=== PATIENT | female | born 1940 | race Caucasian/White ===

== ENCOUNTER 2024-09-19 10:15 | Emergency (ER) | payer OTHER, SELFPAY ==
[2024-09-19 10:24] VITALS: BP 163/76; PULSE 73; RESP 18; TEMP 36.8; O2SAT 95; BMI 39.2
--- NOTE | 2024-09-19 10:36 | XR_ITS ---
Examination: Knee, left , 3 views Technique: Knee AP, lateral, oblique 3 views Date and time of exam: September 19, 2024 1056 hours INDICATIONS: Left knee pain beginning 2 days ago. FINDINGS: Moderate to advanced tricompartment osteoarthritis, most severe medial joint space Small knee effusion No fracture Prominent osteopenia IMPRESSION: Moderate to advanced tricompartment osteoarthritis
--- NOTE | 2024-09-19 10:36 | XR_ITS ---
Examination: CT cervical spine without contrast 2-D sagittal reconstructions 2-D coronal reconstructions 3-D reconstructions. Exam date and time:September 19, 2024 1047 hours INDICATIONS: Patient fell out of bed this morning with injury of the neck, neck pain CTDI:vol (mGy) 9.17 DLP: (mGycm) 181 Technique: Multiple 2 mm axial sections of the cervical spine have been obtained. The coronal and sagittal reconstructions have been obtained. 3-D reconstructions have been obtained. Low dose protocols were performed. One or more of the following dose reduction techniques were used; automated exposure control, adjustment of the mA and/or KV according to patient size, use of iterative reconstruction technique. Findings: Axial sections demonstrate intact base of the skull. C1 exhibit satisfactory relationship to the odontoid. No acute cervical vertebral body fracture seen. Alignment posterior spinous processes satisfactory. 16mm nodule right parotid gland, noted on the July 13, 2020 soft tissue neck study Impression: No acute cervical fracture.
--- NOTE | 2024-09-19 10:36 | XR_ITS ---
Examination: Thoracic spine 2 views Technique one AP lateral 2 views Exam date and time: September 19, 2024 1110 hours INDICATIONS: Patient fell today with injury to the upper back, upper back pain. FINDINGS: Severe osteopenia Thoracic dextroscoliosis 13 degrees Prominent thoracic spondylosis No acute thoracic fracture IMPRESSION: No acute thoracic fracture
--- NOTE | 2024-09-19 10:36 | XR_ITS ---
Examination: CT brain head without contrast. 2-D sagittal coronal reconstructions Date and time of exam:September 19, 2024 1047 hours INDICATIONS: Patient fell out of bed this morning with injury to the head, head pain CTDI: vol (mGy):52.4 DLP: (mGycm):1064 Technique: Multiple CT axial sections of the brain have been obtained, 5 mm slice thickness. Contrast has not been administered. 2-D sagittal, coronal reconstructions have been obtained Low dose protocols were performed. One or more of the following dose reduction techniques were used; automated exposure control, adjustment of the mA and/or KV according to patient size, use of iterative reconstruction technique. Findings: No significant ventricular enlargement. Intra-axial or extra-axial hemorrhage density is not seen. No mass effect or midline shift Basal cisterns are not remarkable. Fourth ventricle is midline. Cranial vault intact. Impression: Negative for acute hemorrhage, mass effect or midline shift
--- NOTE | 2024-09-19 10:36 | PD.EDRME ---
Rapid Medical Screening Exam RME Arrival date/time: 09/19/24 10:15 84-year-old female with a history of hypertension, hypothyroidism presents to the emergency room with a chief complaint of a fall from her bed that occurred this morning. Patient states she is having headache, neck pain, thoracic back pain, and left knee pain. I have greeted and performed a focused initial assessment of this patient. A comprehensive ED assessment and evaluation of the patient, analysis of all test results, and completion of the medical decision making process will be conducted by additional ED providers. Chief Complaint: Back Pain/Injury Time Seen by Provider: 09/19/24 10:19 Vital signs: Vital Signs Temperature 98.2 F 09/19/24 10:24 Pulse Rate 73 09/19/24 10:24 Respiratory Rate 18 09/19/24 10:24 Blood Pressure 163/76 H 09/19/24 10:24 Pulse Oximetry (%) 95 09/19/24 10:24 Oxygen Delivery Method Room Air 09/19/24 10:24 Vital signs reviewed by provider: Yes
--- NOTE | 2024-09-19 12:36 | PD.EDBACK ---
ED Back Injury Pain RME/HPI General Chief Complaint: Back Pain/Injury Stated Complaint: BACK INJURY FALLING OUT OF BED X AM Time Seen by Provider: 09/19/24 10:19 Arrival date/time: 09/19/24 10:15 RME / HPI RME / HPI Narrative: 84-year-old female patient came in for evaluation regarding left knee pain. Patient fell off the bed this morning and now complaining of pain to the left knee, neck pain, upper back pain, described as dull ache, severity moderate. Patient denies any LOC denies any chest pain denies any abdominal pain. Patient has been complaining also of pain to the left knee for more than a week. Denies any fever. Patient is currently not taking any medication. For pain. Patient came with her son. Related Data Home Medications ?Medication ?Instructions ?Recorded ?Confirmed hydrochlorothiazide 25 mg tablet 25 mg PO QAM Diuretic #0 tabs 07/25/15 07/30/20 lisinopril 10 mg tablet 10 mg PO QDAY High Blood Pressure 07/25/15 07/30/20 #0 tabs aspirin 81 mg tablet 81 mg PO QDAY 07/28/20 07/30/20 Held on 07/30/20. Instructions: Resume on 07/31/20. levothyroxine 75 mcg tablet 75 mcg PO QDAY 07/30/20 07/30/20 Previous Rx's ?Medication ?Instructions ?Recorded acetaminophen 300 mg-codeine 30 mg 1 tab PO BID PRN pain #20 tabs 09/19/24 tablet Allergies Allergy/AdvReac Type Severity Reaction Status Date / Time Penicillins Allergy Severe Swelling Verified 09/19/24 10:17 Review of Systems Review of Systems Narrative Review of Systems: Review of system reviewed and within normal limits except mentioned in HPI ED Exam Narrative Physical exam: VITAL SIGNS: Reviewed. GENERAL APPEARANCE: Alert and interactive, follows commands, no acute distress, HEAD AND FACE: Non-traumatic. ENT: PERRL, pink conjunctivitis, eyelid no trauma, Mucous membrane moist. NECK: Supple, posterior neck tenderness, no nuchal rigidity. CHEST: No tenderness, no crepitus, no paradoxical movement, no retractions. LUNGS: Clear, well ventilated, symmetric, no rales, no wheezing, no ronchi, no stridor, good breath sounds bilaterally. HEART: Regular rate, regular rhythm, no murmur, no gallops. ABDOMEN: Soft, positive bowel sounds, nondistended, no guarding, nontender, no rebound, no masses, RECTAL: Deferred. GENITAL: Deferred. NEUROLOGICAL: Gross motor function intact sensory function intact, Appropriate for age. MUSCULOSKELETAL: low back nontender, full range of motion. EXTREMITIES: Left knee bruising, tenderness no deformity no crepitus, full range of motion. SKIN: Color pink, dry, no rash, no lacerations, no abrasions, no contusions. LYMPHATICS: Deferred. Course Quality Measures none Orders Category Date Time Status CT cervical spine wo con Stat Exams 09/19/24 10:[address] head/brain wo con Stat Exams 09/19/24 10:36 Completed XR knee LT 3V Stat Exams 09/19/24 10:36 Completed XR thoracic spine 3V Stat Exams 09/19/24 10:36 Completed Morphine Inj Med 09/19/24 12:35 Once 4 mg IM X1 ONE Ondansetron Odt [Zofran Odt] Med 09/19/24 12:35 Once 4 mg PO X1 ONE Vital Signs Vital signs: Vital Signs Temperature 98.2 F 09/19/24 10:24 Pulse Rate 73 09/19/24 10:24 Respiratory Rate 18 09/19/24 10:24 Blood Pressure 163/76 H 09/19/24 10:24 Pulse Oximetry (%) 95 09/19/24 10:24 Oxygen Delivery Method Room Air 09/19/24 10:24 Back Pain / Injury MDM Narrative MDM Narrative:: 84-year-old female patient came in for evaluation regarding left knee pain. Patient fell off the bed this morning and now complaining of pain to the left knee, neck pain, upper back pain, described as dull ache, severity moderate. Patient denies any LOC denies any chest pain denies any abdominal pain. Patient has been complaining also of pain to the left knee for more than a week. Denies any fever. Patient is currently not taking any medication. For pain. Patient came with her son. CT scan of the head came back unremarkable. CT scan of the neck came back unremarkable. X-ray of the knee also came back unremarkable x-ray of the thoracic spine also came back unremarkable. Results discussed with the patient and her son. Patient was given morphine IM and Zofran Patient is stable for discharge home Patient data External records reviewed:: None Clinical information provided by:: patient and family Social determinants that could affect healthcare access:: none Patient has the following chronic illnesses:: Hypertension, hypothyroidism How is presenting disease/condition affected by chronic disease/condition?: exacerbated by Evaluation data The following diagnostics were reviewed and interpreted by me:: radiology exam(s) Lab and/or radiology exams considered but not ordered:: None Interpretation Summary: See results MDM Medications / Prescriptions Medications or Prescriptions considered but not ordered:: None Medication administrations:: Morphine and Zofran Consultations Consultation(s) initiated? (list below): No Diagnosis Differential diagnosis back pain/injury: other (Fall, neck pain, knee pain, intra cranial bleed) Most likely diagnosis given after review of the tests above:: Fall neck pain knee pain status post fall Admission Indicated Admission indicated?: not indicated Explain why admission is indicated or not indicated:: Stable Admission Request Was there a request for admission?: No Disposition Plan Disposition Plan: Discharge Discharge Attestation Discharge Attestation: The patient and all family members were given an opportunity to ask questions and understood the discharge instructions. Discharge instructions specifically effects, indications for sooner follow up or return to the emergency department, and the expected course of current diagnosis. Patient condition: Stable Discharge Plan Plan Patient Disposition: HOME (Self Care) Discharge Disposition comment: Stable Prescriptions/Referrals Prescriptions/Med Rec: New acetaminophen-codeine 300-30 mg tablet 1 tab PO BID PRN (Reason: pain) Qty: 20 0RF No Action lisinopril 10 MG tablet 10 mg PO QDAY Qty: 0 hydrochlorothiazide 25 MG tablet 25 mg PO QAM Qty: 0 aspirin 81 mg Tablet 81 mg PO QDAY levothyroxine 75 mcg Tablet 75 mcg PO QDAY Referrals: No Primary/Family,Physician [Primary Care Provider] - In 1 week Problem List Clinical Impression: Acute knee pain, Neck pain, Fall, Acute upper back pain Patient/Caregiver Discharge Instructions Discharge Activity: activity as tolerated Education Materials: ED Back and Neck Pain, General Additional Instructions: Thank you for the opportunity for serving you today. You are stable for discharged . You are advised to: Follow-up with your PCP in 1 to 2 days Return to ED for worsening of symptoms Increase oral fluids I prescribe you Tylenol with codeine you can take 1 tablet every 8-12 hours as needed for pain, I will make you sleepy and steady with ambulation be careful and asked help if you are going to ambulate. Print Language: Peruvian Stand Alone Forms: Myrna Award Info., Patient Portal Info Letter PA/[employer] Supervising Physician PA/[employer] Supervising Physician: MD Cristina
[2024-09-19 12:49] VITALS: BP 157/80; PULSE 53; RESP 17; TEMP 36.4; O2SAT 95
[2024-09-19] MEDS: MORPHINE SULF INJ 10 MG/ML VIAL 4 MG IM (12:49)
[2024-09-19] MEDS: ONDANSETRON ODT 4 MG TABRAP PO (12:49)
== END 2024-09-19 12:56 | disposition home or self-care (01) ==
PROVIDERS: Emergency Provider Emergency Medicine
DX: M25.562 Pain in left knee (principal); M54.2 Cervicalgia; M54.6 Pain in thoracic spine; R51.9 Headache, unspecified
CPT/HCPCS: 70450; 72072; 72125; 73562; 96372; 99284; J2270; Q0162